=== PATIENT | female | born 1980 | race Caucasian/White ===

== ENCOUNTER 2017-09-27 17:47 | Emergency (ER) | payer OTHER ==
[2017-09-27 18:28] VITALS: PULSE 81; RESP 16; TEMP 98.2
[2017-09-27] MEDS ORDERED: Naproxen 550 mg Tab PO STA (19:48)
[2017-09-27] MEDS ORDERED: Naproxen 550 mg Tab PO ONE (19:55)
--- NOTE | 2017-09-27 19:56 | C.PDOC ---
History Of Present Illness 37yo female presents to ER with complaints of atraumatic right knee pain for the past week. She deneis any associated weakness, numbness or tingling. Patient states the pain is worse with ambulation. She has no other complaints. Time Seen by Provider: 09/27/17 19:20 Chief Complaint (Nursing): Lower Extremity Problem/Injury History Per: Patient History/Exam Limitations: no limitations Onset/Duration Of Symptoms: Days Current Symptoms Are (Timing): Still Present Past Medical History Reviewed: Historical Data, Nursing Documentation, Vital Signs Vital Signs: Last Vital Signs Temp 98.2 F 09/27/17 20:02 Pulse 81 09/27/17 20:02 Resp 16 09/27/17 20:02 BP 104/67 09/27/17 20:02 Pulse Ox 98 09/28/17 02:37 - Medical History PMH: No Chronic Diseases Surgical History: No Surg Hx Family History: States: No Known Family Hx - Social History Hx Alcohol Use: No Hx Substance Use: No Review Of Systems Musculoskeletal: Positive for: Leg Pain (right knee pain) Neurological: Negative for: Weakness, Numbness Physical Exam - Physical Exam Appears: Non-toxic, No Acute Distress Skin: Normal Color, Warm, Diaphoretic Head: Normacephalic Eye(s): bilateral: Normal Inspection Neck: Supple Extremity: Normal ROM, No Tenderness, No Pedal Edema Extremity: Right: Atraumatic Neurological/Psych: Oriented x3, Normal Speech, Normal Cognition, Normal Motor, Normal Sensation Gait: Steady ED Course And Treatment O2 Sat by Pulse Oximetry: 98 (RA) Pulse Ox Interpretation: Normal Progress Note: Patient with well exam in ER. Given Naproxen PO, and knee brace. Patient informed to follow up with PCP in 1-2 days. Disposition Counseled Patient/Family Regarding: Diagnosis, Need For Followup, Rx Given - Disposition Referrals: [facility] [Outside] Disposition: HOME/ ROUTINE Disposition Time: 19:53 Condition: STABLE Additional Instructions: Please follow up in clinic Take meds as directed Use knee brace for support Return to ER if worse Prescriptions: Naproxen [Naprosyn] 1 tab PO BID PRN #20 tab PRN Reason: Pain Instructions: Knee Pain Forms: [employer] (Indonesian) - Clinical Impression Clinical Impression: Knee pain, right - PA / HEALTH SAFETY SPECIALIST / Resident Statement MD/DO has reviewed & agrees with the documentation as recorded. - Scribe Statement The provider has reviewed the documentation as recorded by the Scribe (Tasha Jeronimo) Provider Attestation: All medical record entries made by the Scribe were at my direction and personally dictated by me. I have reviewed the chart and agree that the record accurately reflects my personal performance of the history, physical exam, medical decision making, and the department course for this patient. I have also personally directed, reviewed, and agree with the discharge instructions and disposition.
[2017-09-27 20:02] VITALS: BP 104/67
[2017-09-28 02:36] VITALS: O2SAT 98
== END 2017-09-27 20:14 | disposition home or self-care (01) ==
LOC: C.ER 17:47
DX: M25.561 Pain in right knee (principal)